=== PATIENT | male | born 1995 | race Caucasian/White ===

== ENCOUNTER 2023-02-26 19:38 | Emergency (ER) | payer SELFPAY ==
[~2023-02-26] VITALS: Ht 167.6 cm; Wt 72.0 kg
[2023-02-26 20:21] VITALS: O2SAT 99
[2023-02-26 22:15] VITALS: BP 124/88; PULSE 70; RESP 18; TEMP 98
== END 2023-02-26 22:16 | disposition home or self-care (01) ==
LOC: ER 19:38
DX: T78.40XA Allergy, unspecified, initial encounter (principal); I10 Essential (primary) hypertension; X58.XXXA Exposure to other specified factors, initial encounter
CPT/HCPCS: 99281